=== PATIENT | female | born 1995 | race Caucasian/White ===

== ENCOUNTER 2018-05-23 15:32 | Emergency (ER) | payer MEDICAID ==
[~2018-05-23] VITALS: Ht 167.6 cm; Wt 113.7 kg
[2018-05-23 15:41] VITALS: Ht 167.6 cm; Wt 113.7 kg
[2018-05-23] MEDS ORDERED: ACETAMINOPHEN 500 MG TAB PO STA (16:43)
[2018-05-23 18:49] VITALS: BP 125/81; PULSE 79; RESP 18
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
== END 2018-05-23 18:50 | disposition home or self-care (01) ==
LOC: FTE 15:32
DX: O20.9 Hemorrhage in early pregnancy, unspecified (principal); Z3A.09 9 weeks gestation of pregnancy
CPT/HCPCS: 36415; 76801; 76817; 81001; 84702; 85025; Z7502; Z7610

== ENCOUNTER 2018-05-25 12:08 | Emergency (ER) | payer MEDICAID ==
[~2018-05-25] VITALS: Wt 113.0 kg
[2018-05-25 16:50] VITALS: BP 112/62; PULSE 88; RESP 15
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
== END 2018-05-25 17:08 | disposition home or self-care (01) ==
LOC: FTE 12:08
DX: O20.9 Hemorrhage in early pregnancy, unspecified (principal); Z3A.08 8 weeks gestation of pregnancy
CPT/HCPCS: 36415; 76801; 84702; 85025; 86900; 86901; Z7502

== ENCOUNTER 2018-05-28 14:28 | Emergency (ER) | payer MEDICAID ==
[~2018-05-28] VITALS: Ht 165.1 cm; Wt 114.4 kg
[2018-05-28 14:32] VITALS: Ht 165.1 cm; Wt 114.4 kg
--- NOTE | 2018-05-28 17:17 | ERD ---
ER Documentation Chief Complaint Chief Complaint on and off vag bleed since Friday 2 mos HPI 22-year-old female who states that she is 9 weeks presents the emergency department complaining of intermittent vaginal bleeding since Friday. At this time patient does have a stop. Patient states that she has been here on May 23 for vaginal bleeding in which workup has been done, patient was told to return in 2 days which she has and her beta-hCG level has dropped, patient states that she has an appointment to see her MELT HOUSE SUPERVISOR in 2 weeks. She denies any pelvic pain, vaginal bleeding, nausea vomiting diarrhea. ROS All systems reviewed and are negative except as per history of present illness. Medications Home Meds Active Scripts Cephalexin* (Keflex*) 500 Mg Capsule, 500 MG PO QID for 5 Days, CAP Prov:CARINA GONZALEZ PA-C 05/28/18 Allergies Allergies: Coded Allergies: No Known Allergy (Unverified , 05/23/18) PMhx/Soc Hx Cardiac Disorders: Yes (HTN) Hx Psychiatric Problems: Yes (Depression) Hx Miscellaneous Medical Probl: Yes (Depression, Anxiety) Hx Alcohol Use: No Hx Substance Use: No Hx Tobacco Use: No Smoking Status: Never smoker Physical Exam Vitals Vital Signs Date Temp Pulse Resp B/P (MAP) Pulse Ox O2 O2 Flow FiO2 Time Delivery Rate 05/28/18 97.7 86 20 170/83 99 14:32 (112) Physical Exam Const: No acute distress Head: Atraumatic Eyes: Normal Conjunctiva ENT: Normal External Ears, Nose and Mouth. Neck: Full range of motion. No meningismus. Resp: Clear to auscultation bilaterally Cardio: Regular rate and rhythm, no murmurs Abd: Soft, non tender, non distended. Normal bowel sounds Skin: No petechiae or rashes Back: No midline or flank tenderness Ext: No cyanosis, or edema Neur: Awake and alert Psych: Normal Mood and Affect Result Diagram: 05/28/18 1603 Results 24 hrs Laboratory Tests Test 05/28/18 16:03 White Blood Count 11.3 10^3/ul Red Blood Count 4.48 10^6/ul Hemoglobin 13.1 g/dl Hematocrit 38.3 % Mean Corpuscular Volume 85.5 fl Mean Corpuscular Hemoglobin 29.2 pg Mean Corpuscular Hemoglobin Concent 34.2 g/dl Red Cell Distribution Width 12.7 % Platelet Count 261 10^3/UL Mean Platelet Volume 9.4 fl Immature Granulocytes % 0.400 % Neutrophils % 63.9 % Lymphocytes % 26.9 % Monocytes % 7.3 % Eosinophils % 1.1 % Basophils % 0.4 % Nucleated Red Blood Cells % 0.0 /100WBC Immature Granulocytes # 0.050 10^3/ul Neutrophils # 7.2 10^3/ul Lymphocytes # 3.0 10^3/ul Monocytes # 0.8 10^3/ul Eosinophils # 0.1 10^3/ul Basophils # 0.1 10^3/ul Nucleated Red Blood Cells # 0.0 10^3/ul Urine Color YELLOW Urine Clarity CLOUDY Urine pH 6.0 Urine Specific [place] 1.024 Urine Ketones NEGATIVE mg/dL Urine Nitrite NEGATIVE mg/dL Urine Bilirubin NEGATIVE mg/dL Urine Urobilinogen NEGATIVE mg/dL Urine Leukocyte Esterase TRACE Tanisha/ul Urine Microscopic RBC 2 /HPF Urine Microscopic WBC 3 /HPF Urine Squamous Epithelial Cells MODERATE /HPF Urine Bacteria FEW /HPF Urine Mucus FEW /HPF Urine Hemoglobin 1+ mg/dL Urine Glucose NEGATIVE mg/dL Urine Total Protein NEGATIVE mg/dl Beta HCG, Quantitative 15751.0 mIU/ml Procedures/MDM 22-year-old female G 2P1 who is 9 weeks presents emergency department for reevaluation of vaginal bleeding. At this time patient does not have any vaginal bleeding, she is seemingly stable and nontoxic. Patient's beta-hCG has been trending downward, today's beta-hCG level is 73,129 AND ob us showed single live intrauterine repeat. He has threatened . Patient's has an appointment to see MELT HOUSE SUPERVISOR in 2 weeks, I have discussed with her follow-up with her in 2 days, patient states that the MELT HOUSE SUPERVISOR will be in the office on Friday. I discussed with her to return to emerge department for any worsening symptoms or bleeding return. Patient understands and agrees to this plan OB US Single live intrauterine with an estimated gestational age of 9 weeks and 4 days, based on ultrasound measurements. CHA based on ultrasound measurements is 12/27/18. Tiny area of subchorionic hemorrhage, unchanged from 05/23/2018. Trace amount of free fluid adjacent to the right ovary. Departure Diagnosis: Primary Impression: Threatened Additional Impression: Vaginal bleeding during Condition: Stable BASHARDOUST,NUSHA N. PA-C May 28, 2018 17:17
[2018-05-28] MEDS ORDERED: CEPH-443 PO (17:51)
[2018-05-28 17:56] VITALS: BP 110/70; PULSE 78; RESP 19
== END 2018-05-28 17:56 | disposition home or self-care (01) ==
LOC: FTE 14:28
DX: O20.0 Threatened abortion (principal); O10.011 Pre-existing essential hypertension complicating pregnancy, first trimester; Z3A.09 9 weeks gestation of pregnancy
CPT/HCPCS: 36415; 76801; 76817; 81001; 84702; 85025; 86900; 86901; Z7502